=== PATIENT | female | born 1955 | race Caucasian/White ===

== ENCOUNTER 2018-11-19 16:36 | Emergency (ER) | payer BC, OTHER ==
[2018-11-19 16:53] VITALS: BP 138/87
[2018-11-19] MEDS ORDERED: Albuterol 2.5 MG/3 ML NEB.SOL* (0.083%) INH ONE (16:57)
--- NOTE | 2018-11-19 17:04 | UC ---
Respiratory Complaint HPI - HPI Summary HPI Summary: 63-year-old woman comes in with a chief complaint of shortness breath. Started 4 days ago with dry cough. Patient reports that she feels sick. No chest pain no edema no calf pain. No fevers she has had chills. She reports hearing wheezing. She had childhood asthma but she has not had any symptoms like wheezing for 20 years. No history of CHF. Patient had a pneumonia immunization on November 14, 2018. Her dry cough started on November 15, 2018. Her symptoms have worsened since that time. No rash. - History of Current Complaint Chief Complaint: UCGeneralIllness Stated Complaint: TROUBLE BREATHING,CHILLS Time Seen by Provider: 11/19/18 16:47 Hx Last Menstrual Period: n/a Pain Intensity: 3 - Allergies/Home Medications Allergies/Adverse Reactions: Allergies Allergy/AdvReac Type Severity Reaction Status Date / Time No Known Allergies Allergy Verified 11/19/18 16:47 Home Medications: Home Medications Levothyroxine TAB* [Synthroid TAB*] 75 mcg PO DAILY 11/19/18 [History Confirmed 11/19/18] PMH/Surg Hx/FS Hx/Imm Hx Previously Healthy: Yes Endocrine History: Hypothyroidism - Surgical History Surgical History: Yes Surgery Procedure, Year, and Place: DENTAL,CATARACT REPAIR - Family History Known Family History: Positive: None - Social History Alcohol Use: Weekly Substance Use Type: None Smoking Status (MU): Never Smoked Tobacco Review of Systems All Other Systems Reviewed And Are Negative: Yes Constitutional: Positive: Chills Skin: Positive: Negative Eyes: Positive: Negative ENT: Positive: Negative Respiratory: Positive: Shortness Of Breath, Cough Cardiovascular: Positive: Negative Gastrointestinal: Positive: Negative Motor: Positive: Negative Neurovascular: Positive: Negative Musculoskeletal: Positive: Negative. Negative: Calf Tenderness, Edema, Myalgia Neurological: Positive: Negative Psychological: Positive: Negative Is Patient Immunocompromised?: No Physical Exam Triage Information Reviewed: Yes Appearance: No Pain Distress, Well-Nourished, Ill-Appearing - MILD Vital Signs: Initial Vital Signs Temp 97.6 F 11/19/18 16:41 Pulse 62 11/19/18 16:41 Resp 16 11/19/18 16:41 BP 138/87 11/19/18 16:41 Pulse Ox 99 11/19/18 16:41 Vital Signs Reviewed: Yes Eye Exam: Normal Eyes: Positive: Conjunctiva Clear Neck exam: Normal Neck: Positive: Supple Respiratory: Positive: Lungs clear, Normal breath sounds, No respiratory distress Cardiovascular: Positive: RRR Musculoskeletal Exam: Normal Musculoskeletal: Positive: Strength Intact, ROM Intact, No Edema, Other: - NO CALF TENDERNESS Neurological Exam: Normal Neurological: Positive: Alert, Muscle Tone Normal Psychological Exam: Normal Psychological: Positive: Normal Response To Family, Age Appropriate Behavior Skin Exam: Normal UC Diagnostic Evaluation - Laboratory O2 Sat by Pulse Oximetry: 99 - EKG Cardiac Rate: NL - AT 1645 Cardiac Rhythm: Sinus: Normal - 58BPM Ectopy: None ST Segment: Normal Respiratory Course/Dx - Course Course Of Treatment: Patient had albuterol in clinic she's not sure if it is helped with her breathing. I discussed the chest x-ray with her and her . I do not see any acute disease process on the chest x-ray radiologist reading is pending. The plan is to treat his bronchitis with bronchospasm with follow-up with her doctor or reevaluation sooner if worsening. - Differential Dx/Diagnosis Provider Diagnosis: Bronchitis, Bronchospasm, Dyspnea Discharge - Sign-Out/Discharge Documenting (check all that apply): Patient Departure All imaging exams completed and their final reports reviewed: No - Discharge Plan Condition: Stable Disposition: HOME Prescriptions: Albuterol HFA INHALER* [Ventolin HFA Inhaler*] 2 puff INH Q4H PRN #1 mdi PRN Reason: Wheezing Azithromycin TAB* [Zithromax TAB (Z-LINWOOD) 250 mg #6 tabs] 2 tab PO .TODAY, THEN 1 DAILY #1 linwood Patient Education Materials: Acute Bronchitis (ED), Bronchospasm (ED), Dyspnea (ED) Referrals: Dexter Rios MD [Primary Care Provider] - Additional Instructions: FOLLOW UP WITH YOUR DOCTOR IF NOT COMPLETELY IMPROVED. GET RECHECKED SOONER WITH ANY WORSENING OF YOUR CONDITION; CHEST PAIN, SHORTNESS OF BREATH, FEVER, YOU FEEL ILL OR QUESTIONS OR CONCERNS. - Billing Disposition and Condition Condition: STABLE Disposition: Home
--- NOTE | 2018-11-20 07:35 | UC ---
- Progress Note Progress Note: chest xray reports: IMPRESSION: NO EVIDENCE FOR ACTIVE CARDIOPULMONARY DISEASE. Course/Dx - Diagnoses Provider Diagnoses: Bronchitis, Bronchospasm, Dyspnea Discharge - Sign-Out/Discharge Documenting (check all that apply): Patient Departure All imaging exams completed and their final reports reviewed: Yes - Discharge Plan Condition: Stable Disposition: HOME Prescriptions: Albuterol HFA INHALER* [Ventolin HFA Inhaler*] 2 puff INH Q4H PRN #1 mdi PRN Reason: Wheezing Azithromycin TAB* [Zithromax TAB (Z-LINWOOD) 250 mg #6 tabs] 2 tab PO .TODAY, THEN 1 DAILY #1 linwood Patient Education Materials: Acute Bronchitis (ED), Dyspnea (ED), Bronchospasm (ED) Referrals: Dexter Rios MD [Primary Care Provider] - Additional Instructions: FOLLOW UP WITH YOUR DOCTOR IF NOT COMPLETELY IMPROVED. GET RECHECKED SOONER WITH ANY WORSENING OF YOUR CONDITION; CHEST PAIN, SHORTNESS OF BREATH, FEVER, YOU FEEL ILL OR QUESTIONS OR CONCERNS. - Billing Disposition and Condition Condition: STABLE Disposition: Home
== END 2018-11-19 18:40 | disposition home or self-care (01) ==
LOC: UCCORT 16:36
DX: J98.01 Acute bronchospasm (principal); J40 Bronchitis, not specified as acute or chronic; R06.00 Dyspnea, unspecified; E03.9 Hypothyroidism, unspecified; Z79.899 Other long term (current) drug therapy
CPT/HCPCS: 71046; 93005; 99212; G0463